=== PATIENT | female | born 1995 | race American Indian/Alaskan Native ===

== ENCOUNTER 2017-12-20 12:18 | Emergency (ER) | payer SELFPAY ==
[2017-12-20 12:32] VITALS: BP 150/98
== END 2017-12-20 13:05 | disposition left against medical advice (07) ==
LOC: ED 12:18
DX: Z32.00 Encounter for pregnancy test, result unknown (principal); Z53.21 Procedure and treatment not carried out due to patient leaving prior to being seen by health care provider

== ENCOUNTER 2018-07-13 17:26 | Outpatient (CLI) | payer MEDICAID ==
[2018-07-13] MEDS ORDERED: LACTATED RINGERS 500 ML IV ONE (17:37)
[2018-07-13 18:49] LABS: Bacteria,Urine 1+ /HPF (Negative); Bilirubin,Urine NEG (Negative); Blood,Urine SM (Negative); Color,Urine Yellow (Yellow); Mucus,Urine FEW /HPF; Urobilinogen,Urine < 2.0 mg/dL (<2.0)
[2018-07-13 20:17] LABS: Hematocrit 33.8 % (30.3-42.9); Hemoglobin 11.3 gm/dl (10.1-14.3); Mean Corpuscular HGB Conc 33 % (30-34); Mean Corpuscular Volume 94 fl (79-97); Platelet Count 233 K/mm3 (140-440); Red Cell Distribution Width 13.4 % (13.2-15.2)
[2018-07-13 20:40] VITALS: BP 141/100
[2018-07-13 20:44] LABS: Alanine Aminotransferase 12 units/L (7-56); Uric Acid 4.3 mg/dL (3.5-7.6)
--- NOTE | 2018-07-13 22:03 | Ultrasound Report ---
FINAL REPORT EXAM: US OB BPP WO NON-STRESS HISTORY: BPP, CORA, EFW TECHNIQUE: Biophysical profile obstetrical ultrasound PRIORS: None. FINDINGS: LMP 11/07/2017 clinical Age: 35 w 3 d LMP EDC 08/14/2018 Biophysical profile scoring 2 movement 2 tone 2 breathing 2 fluid 8/8 overall score Cardiac motion: 149 BPM using M-mode doppler Amniotic Fluid Volume: Adequate Cervical Length: 4.0 cm IMPRESSION: Single intrauterine viable with an approximate age of 35 weeks 3 days. Biophysical profile score is 8/8
--- NOTE | 2018-07-13 22:07 | Ultrasound Report ---
FINAL REPORT EXAM: US OB FOLLOW UP HISTORY: BPP, CORA, EFW TECHNIQUE: Limited obstetrical ultrasound PRIORS: None. FINDINGS: LMP: LMP 11/07/2017 clinical Age: 35 w 3 d US Age (average) = 32 w 1 d EFW (BPD,HC,AC,FL) = 1875 g +/-278 g (4 lbs 2 Oz. +/-10 oz.) LMP EDC 08/14/2018 US EDC 09/06/2018 CI 79.8 (range 74 to 83) HC/AC 1.07 (range 0.93 to 1.11) FL/BPD 77.1 (range 72.1 to 88.1) FL/HC 20.7 (range 17.9 to 24.5) FL/AC 22.3 (range 20 to 24.0) BPD 8.0 cm corresponding to age 32 weeks 1 day HC 30.0 cm corresponding to age 32 weeks 6 days AC 27.7 cm corresponding to age 31 weeks 5 days FL 6.2 cm corresponding to age 32 weeks 0 days Presentation: Cephalic Activity: Monitored Placental location: Fundus Placental grade: 1 Cardiac motion: 144 BPM using M-mode doppler Amniotic Fluid Volume: Adequate CORA 11.0 cm (normal) Cervical Length: 4.0 cm IMPRESSION: Single intrauterine viable with an approximate age of 32 weeks 1 days by ultrasound measur ements. CORA normal. Placenta is normal without evidence for placenta previa or abruption.
== END 2018-07-13 21:30 | disposition home or self-care (01) ==
LOC: TRG 17:26
PROVIDERS: ATTEND Obstetrics & Gynecology
DX: O47.03 False labor before 37 completed weeks of gestation, third trimester (principal); Z3A.35 35 weeks gestation of pregnancy
CPT/HCPCS: 36415; 59025; 76816; 76819; 81001; 82565; 83615; 84450; 84460; 84550; 85027

== ENCOUNTER 2018-07-14 19:57 | Inpatient (IN) | payer MEDICAID ==
[2018-07-14] MEDS ORDERED: STADOL IV PRN (21:45)
[2018-07-14] MEDS ORDERED: CERVIDIL VG ONE (21:45)
[2018-07-14 22:36] LABS: Mean Corpuscular HGB Conc 33 % (30-34); Mean Corpuscular Volume 93 fl (79-97); Platelet Count 227 K/mm3 (140-440); Red Blood Count 3.55 M/mm3 (3.65-5.03); Red Cell Distribution Width 12.9 % (13.2-15.2)
[2018-07-14] MEDS ORDERED: NORMODYNE PO SCH (23:00)
[2018-07-14] MEDS: NORMODYNE PO SCH (23:02)
[2018-07-15] MEDS: NORMODYNE PO SCH ×3 (08:11→21:54)
[2018-07-15] MEDS ORDERED: AMPICILLIN/NS 2 GM/100 ML 2 GM/100 ML BAG IV ONE ×2 (09:00→15:30)
--- NOTE | 2018-07-15 11:35 | History and Physical Report ---
History of Present Illness Date of examination: 07/15/18 Date of admission: 07/14/18 19:57 Chief complaint: IOL History of present illness: 22y/o @ 35+5 weeks admitted for induction of labor secondary to chronic hypertension and IUGR. Per request from [facility], the patient is undergoing induction of labor. Her course has also been complicated by obesity. Past History Past Medical History: hypertension Past Surgical History: no surgical history Social history: single - Obstetrical History Expected Date of Delivery: 08/14/18 Actual Gestation: 35 Week(s) 5 Day(s) : 1 Para: 0 Hx # Term Pregnancies: 0 Number of Pregnancies: 0 Spontaneous Abortions: 0 Induced : 0 Number of Living Children: 0 Medications and Allergies Allergies Allergy/AdvReac Type Severity Reaction Status Date / Time No Known Allergies Allergy Unverified 02/01/14 11:50 Home Medications Medication Instructions Recorded Confirmed Last Taken Type Vit No.130/Iron/Folic 1 each PO DAILY 05/04/18 07/13/18 07/13/18 08:00 History [ Tablet] Aspirin [Adult Aspirin] 81 mg PO DAILY 05/16/18 07/13/18 07/13/18 08:00 History Labetalol [Normodyne TAB] 400 mg PO TID #180 tablet 06/06/18 07/13/18 07/13/18 14:00 Rx NIFEdipine XL [Procardia Xl] 90 mg PO QDAY #30 tablet 06/06/18 07/13/18 07/13/18 10:00 Rx Active Meds: Active Medications Butorphanol Tartrate (Stadol) 2 mg IV Q2H PRN PRN Reason: Labor Pain Ampicillin Sodium 1 gm/ Sodium (Chloride) 50 mls @ 200 mls/hr IV Q4HR SANG Lactated Ringer's (Lactated Ringers) 1,000 mls @ 125 mls/hr IV DIRECT SANG Labetalol HCl (Normodyne) 400 mg PO TID [facility] Last Admin: 07/15/18 08:11 Dose: 400 mg Documented by: Nifedipine (Procardia*For Tocolysis Only*) 10 mg PO DAILY SANG Review of Systems All systems: negative Genitourinary: no vaginal bleeding, no leakage of fluid, no contractions - Vital Signs Vital signs: Vital Signs Pulse BP 96 H 144/94 07/14/18 20:26 07/14/18 20:26 Temp Pulse Resp BP Pulse Ox 98.4 F 76 16 142/89 98 07/15/18 08:10 07/15/18 08:10 07/15/18 08:10 07/15/18 08:10 07/15/18 07:00 - Physical Exam Breasts: Positive: deferred Cardiovascular: Regular rate Lungs: Positive: Clear to auscultation Results Result Diagrams: 07/14/18 21:55 Abnormal lab results 07/14/18 Range/Units 21:55 RBC 3.55 L (3.65-5.03) M/mm3 RDW 12.9 L (13.2-15.2) % All other labs normal. Assessment and Plan - Patient Problems (1) Chronic hypertension complicating or reason for care during Current Visit: No Status: Acute Qualifiers: Trimester: third trimester Qualified Code(s): O10.913 - Unspecified pre- existing hypertension complicating , third trimester Plan to address problem: admit for induction of labor (2) IUGR (intrauterine growth restriction) Current Visit: No Status: Acute (3) Obesity Current Visit: No Status: Acute Qualifiers: Obesity classification: unspecified obesity classification
[2018-07-15] MEDS: PROCARDIA*For Tocolysis only PO SCH (11:37)
[2018-07-15] MEDS ORDERED: AMPICILLIN 1 GM in NACL 0.9% 50 ML IV SCH (13:00)
[2018-07-15] MEDS: CYTOTEC VG PRN ×2 (15:33→19:44)
[2018-07-15] MEDS ORDERED: AMPICILLIN/NS 1 GM/50 ML 1 GM/50 ML BAG IV SCH (20:00)
[2018-07-15] MEDS: LACTATED RINGERS 1,000 ML IV SCH (20:11)
[2018-07-15] MEDS ORDERED: CYTOTEC PO ONE (23:45)
[2018-07-15] MEDS: AMBIEN PO PRN (23:58)
[2018-07-16] MEDS: APRESOLINE IV PRN ×2 (03:23→13:30)
[2018-07-16] MEDS ORDERED: CYTOTEC VG ONE (04:55)
[2018-07-16] MEDS ORDERED: TYLENOL PO PRN (07:49)
[2018-07-16] MEDS ORDERED: APRESOLINE IV ONE (07:49)
[2018-07-16] MEDS ORDERED: PITOCin/NS 20 UNIT/1000ML DRIP 20 UNITS/1,000 ML BAG IV SCH ×3 (08:00→15:00)
[2018-07-16] MEDS ORDERED: PITOCin/NS 30 UNIT/500ML 30 UNITS/500 ML BAG IV SCH ×2 (08:00→14:00)
[2018-07-16] MEDS: NORMODYNE PO SCH ×3 (08:26→19:55)
[2018-07-16] MEDS: LACTATED RINGERS 1,000 ML IV SCH (08:33)
[2018-07-16] MEDS: PROCARDIA*For Tocolysis only PO SCH (10:30)
--- NOTE | 2018-07-16 12:48 | Progress Note ---
Assessment and Plan - Patient Problems (1) Chronic hypertension complicating or reason for care during Current Visit: No Status: Acute Qualifiers: Trimester: third trimester Qualified Code(s): O10.913 - Unspecified pre- existing hypertension complicating , third trimester (2) IUGR (intrauterine growth restriction) Current Visit: No Status: Acute Plan to address problem: will proceed with a primary delivery (3) Obesity Current Visit: No Status: Acute Qualifiers: Obesity classification: unspecified obesity classification Subjective - Subjective Date of service: 07/16/18 Principal diagnosis: IUGR Interval history: 22y/o @ 35+6 weeks admitted for induction of labor secondary to chronic hypertension and IUGR. The patient has received cervidil and multiple doses of cytotec and her cervix still remains closed. Pitocin was initiated however it appeared the tracing demonstrating occasional subtle late decels. The patient was counseled for a primary delivery. Patient reports: no new complaints Objective - Vital Signs Vital Signs: Vital Signs - 12hr 07/16/18 07/16/18 07/16/18 02:00 02:56 03:23 Temperature 98.0 F Pulse Rate 82 82 Respiratory Rate Blood Pressure 175/110 175/110 O2 Sat by Pulse Oximetry 07/16/18 07/16/18 07/16/18 03:27 03:44 03:58 Temperature Pulse Rate 68 78 71 Respiratory Rate Blood Pressure 183/113 164/106 159/92 O2 Sat by Pulse Oximetry 07/16/18 07/16/18 07/16/18 04:13 04:43 04:59 Temperature Pulse Rate 68 77 93 H Respiratory Rate Blood Pressure 170/82 156/79 155/96 O2 Sat by Pulse Oximetry 07/16/18 07/16/18 07/16/18 05:29 05:33 06:05 Temperature Pulse Rate 91 H 83 90 Respiratory Rate Blood Pressure 164/87 144/92 153/91 O2 Sat by Pulse Oximetry 07/16/18 07/16/18 07/16/18 06:35 07:05 07:25 Temperature 97.5 F L Pulse Rate 74 73 86 Respiratory 20 Rate Blood Pressure 144/83 164/93 168/109 O2 Sat by Pulse Oximetry 07/16/18 07/16/18 07/16/18 07:36 08:06 08:23 Temperature Pulse Rate 82 82 84 Respiratory Rate Blood Pressure 180/120 162/103 O2 Sat by Pulse 97 Oximetry 07/16/18 07/16/18 07/16/18 08:25 08:26 08:28 Temperature Pulse Rate 99 H 99 H 81 Respiratory Rate Blood Pressure 162/103 162/103 O2 Sat by Pulse 98 Oximetry 07/16/18 07/16/18 07/16/18 08:35 08:36 08:40 Temperature Pulse Rate 102 H 100 H 104 H Respiratory Rate Blood Pressure 164/113 O2 Sat by Pulse 97 97 Oximetry 07/16/18 07/16/18 07/16/18 08:45 08:50 08:55 Temperature Pulse Rate 101 H 105 H 112 H Respiratory Rate Blood Pressure O2 Sat by Pulse 98 98 97 Oximetry 07/16/18 07/16/18 07/16/18 09:00 09:05 09:10 Temperature Pulse Rate 96 H 109 H 102 H Respiratory Rate Blood Pressure 146/85 O2 Sat by Pulse 97 98 98 Oximetry 07/16/18 07/16/18 07/16/18 09:35 10:05 10:28 Temperature Pulse Rate 94 H 101 H 90 Respiratory Rate Blood Pressure 136/82 143/85 O2 Sat by Pulse 98 Oximetry 07/16/18 07/16/18 07/16/18 10:33 10:35 10:38 Temperature Pulse Rate 100 H 91 H 85 Respiratory Rate Blood Pressure 125/77 O2 Sat by Pulse 98 98 Oximetry 07/16/18 07/16/18 07/16/18 10:43 10:48 10:53 Temperature Pulse Rate 92 H 89 86 Respiratory Rate Blood Pressure O2 Sat by Pulse 98 97 97 Oximetry 07/16/18 07/16/18 07/16/18 10:58 11:03 11:05 Temperature Pulse Rate 112 H 111 H 107 H Respiratory Rate Blood Pressure 110/58 O2 Sat by Pulse 98 99 Oximetry 07/16/18 07/16/18 07/16/18 11:08 11:13 11:18 Temperature Pulse Rate 107 H 108 H 106 H Respiratory Rate Blood Pressure O2 Sat by Pulse 96 96 96 Oximetry 07/16/18 07/16/18 07/16/18 11:23 11:28 11:33 Temperature Pulse Rate 103 H 104 H 99 H Respiratory Rate Blood Pressure O2 Sat by Pulse 96 98 97 Oximetry 07/16/18 07/16/18 07/16/18 11:35 11:38 11:41 Temperature Pulse Rate 100 H 100 H 104 H Respiratory Rate Blood Pressure 108/69 O2 Sat by Pulse 94 97 86 Oximetry 07/16/18 07/16/18 07/16/18 11:50 12:06 12:33 Temperature 97.8 F Pulse Rate 91 H 80 Respiratory 18 Rate Blood Pressure 119/73 O2 Sat by Pulse 98 Oximetry 07/16/18 12:35 Temperature Pulse Rate 83 Respiratory Rate Blood Pressure 129/84 O2 Sat by Pulse Oximetry - Labs Labs: Abnormal Labs 07/14/18 21:55 RBC 3.55 L RDW 12.9 L
[2018-07-16] MEDS ORDERED: REGLAN IV ONE (13:00)
[2018-07-16] MEDS ORDERED: LACTATED RINGERS 1,000 ML IV SCH (13:00)
[2018-07-16] MEDS ORDERED: BICITRA PO ONE (13:00)
[2018-07-16] MEDS ORDERED: ANCEF/STERILE WATER 2 GM/20 ML 2 GM/20 ML SYRINGE IV NR (13:00)
[2018-07-16] MEDS ORDERED: PEPCID IV ONE (13:00)
[2018-07-16] MEDS ORDERED: CYTOTEC ONE (13:16)
[2018-07-16] MEDS ORDERED: METHERGINE IM ONE (13:17)
[2018-07-16] MEDS ORDERED: PHENERGAN PO PRN (13:27)
[2018-07-16] MEDS ORDERED: ZOFRAN IV PRN (13:27)
[2018-07-16] MEDS ORDERED: PHENERGAN PR PRN (13:27)
[2018-07-16] MEDS ORDERED: NARCAN 0.4 MG/1 ML IV PRN ×2 (13:27→14:14)
[2018-07-16] MEDS ORDERED: DILAUDID IV PRN (13:27)
[2018-07-16] MEDS ORDERED: NEO SYNEPHRINE/NS Syringe(OR USE) IV ONE (13:55)
[2018-07-16] MEDS ORDERED: ZOFRAN ONE (13:55)
[2018-07-16] MEDS ORDERED: ASTRAMORPH PF 10MG/10ML ONE (13:55)
[2018-07-16] MEDS ORDERED: SODIUM CHLORIDE FLUSH SYRINGE 10 ML IV NR ×2 (14:00→15:00)
--- NOTE | 2018-07-16 14:02 | Procedure Note ---
OB Delivery Note - Delivery Date of Delivery: 07/16/18 Surgeon: HARI JOHNSON Estimated blood loss: other (650ml) - Section Preop diagnosis: other Postop diagnosis: same section procedure: section, primary low transverse Disposition: PACU Complications: none - A at 1 minute: 8 at 5 minutes: 9 Infant Gender: Female (weight 3 lbs. 13 oz.)
--- NOTE | 2018-07-16 14:05 | Operative Report ---
Operative Report Operative Report: Date of surgery: 07/16/2018 Preoperative diagnosis: at 35+6 weeks; chronic hypertension affecting ; intrauterine growth restriction; failed induction Postoperative diagnosis: Same as above Procedure: Primary low-transverse delivery Surgeon: Bee Nicole M.D. Anesthesia: Regional Estimated blood loss: 650 mL IV fluids: 1400 mL Urine output: 250 mL Findings: Liveborn female with Apgars of 8 and 9 weight 3 lbs. 13 oz. Indications: 22-year-old at 35+6 weeks who was admitted for induction of labor secondary history of chronic hypertension and intrauterine growth restriction with a weight at 1 percentile. Per the advice of maternal- medicine, it was advised that the patient be scheduled for delivery. The patient's intrapartum course was complicated by a failed induction. Procedure: The patient was taken to the operating room and given regional anesthesia without complication. She was prepped and draped in a normal sterile fashion. A Pfannenstiel skin incision was made down to layer the fascia which was nicked in the midline extended laterally with the Bovie cautery. The superior aspect of the rectus fascia was grasped with Ledyard clamps x2 and the rectus muscles off sharply. This was done in inferior fashion as well. The rectus muscle midline and peritoneum entered bluntly. An Marito retractor was then inserted. A bladder blade was placed. The vesicouterine peritoneum was then entered sharply with Metzenbaum scissors. A bladder flap was created digitally. A low transverse uterine incision was then made and extended digitally. There was clear fluid upon entry into the uterine cavity. The head was delivered through the incision with fundal pressure. The cord was clamped and cut x2 and was passed off to pediatrics. The placenta was then manually extracted. The uterus was then exteriorized and cleared of clots and debris. The uterine incision was then closed in a running locked fashion with 0 Vicryl additional imbricating stitch was applied for 2 layer closure. The posterior cul-de-sac was then copiously irrigated. The uterus was replaced back into the abdomen and pelvis were the gutters were then irrigated. The Marito retractor was then removed. The peritoneum was then reapproximated with 3-0 Vicryl incorporating the rectus muscle. The fascia was then closed with 0 Vicryl in a running fashion. The skin was then reapproximated with 3-0 Monocryl on a Roosevelt needle subcuticular fashion. Steri-Strips to place across the incision and a Crede procedures performed at the end of the surgery. A pressure dressing was applied to the incision. The surgery productive of a liveborn female infant with Apgars of and 9 weight 3 lbs. 13 oz. The patient was taken to the recovery room in stable condition. All sponge laps and needle counts correct x2.
[2018-07-16] MEDS ORDERED: MAGNESIUM SULFATE IV ONE (14:13)
[2018-07-16] MEDS ORDERED: LANSINOH TP PRN (14:14)
[2018-07-16] MEDS ORDERED: TORADOL IV PRN (14:14)
[2018-07-16] MEDS ORDERED: TUCKS PAD TP PRN (14:14)
[2018-07-16] MEDS ORDERED: LACTATED RINGERS 1,000 ML ONE (14:27)
[2018-07-16] MEDS ORDERED: NORMODYNE IV ONE (14:40)
[2018-07-16] MEDS ORDERED: D5LR 1,000 ML IV SCH (15:00)
[2018-07-16] MEDS ORDERED: TORADOL ONE (15:08)
--- NOTE | 2018-07-16 15:20 | Anesthesia Consultation ---
Anesthesia Consult and Med Hx - Airway Anesthetic Teeth Evaluation: Good, Partials ROM Head & Neck: Adequate Mental/Hyoid Distance: Adequate Mallampati Class: Class I Intubation Access Assessment: Good - Cardiac Exam Cardiac Exam: RRR - Pre-Operative Health Status ASA Pre-Surgery Classification: ASA3 Proposed Anesthetic Plan: Spinal - Pulmonary Hx Smoking: No Hx Asthma: No Hx Respiratory Symptoms: No COPD: No Hx Pneumonia: No - Cardiovascular System Hx Hypertension: Yes (hx CHTN) - Central Nervous System Hx Seizures: No Hx Psychiatric Problems: No - Endocrine Hx Renal Disease: No Hx End Stage Renal Disease: No Hx Hypothyroidism: No Hx Hyperthyroidism: No - Hematic Hx Anemia: No Hx Sickle Cell Disease: No - Other Systems Hx Alcohol Use: No (occas social; none during )
--- NOTE | 2018-07-16 15:21 | Post Anesthesia Evaluation ---
- Post Anesthesia Evaluation Patient Participated: Yes Airway Patent: Yes Stable Respiratory Function: Yes Temp > 96.8F: Yes Pain Manageable: Yes Adequeate Hydration: Yes Anesthesia Complications: No Block Receding Appropriately: Yes Patient on Ventilator: No
--- NOTE | 2018-07-16 15:21 | Anesthesia Day of Surgery ---
Anesthesia Day of Surgery - Day of Surgery Patient Examined: Yes Patient H&P Reviewed: Yes Patient is NPO: Yes Beta Blockers: Yes Cardiac Clearance: No Pulmonary Clearance: No Louis's Test: N/A
[2018-07-16] MEDS: MAGNESIUM SULFATE 40GM/1000ML 40 GM/1,000 ML BAG IV SCH (16:28)
[2018-07-16] MEDS ORDERED: MAGNESIUM SULFATE 4GM/100ML 4 GM/100 ML BAG IV SCH (16:34)
[2018-07-16] MEDS: AMBIEN PO PRN (22:40)
[2018-07-17 04:03] LABS: Hematocrit 29.2 % (30.3-42.9); Hemoglobin 9.6 gm/dl (10.1-14.3)
[2018-07-17] MEDS: NORMODYNE PO SCH ×3 (08:45→20:25)
[2018-07-17] MEDS: APRESOLINE IV PRN (08:51)
[2018-07-17] MEDS: PROCARDIA XL PO SCH (10:34)
[2018-07-17] MEDS ORDERED: LACTATED RINGERS 1,000 ML ONE (10:42)
[2018-07-17] MEDS: MAGNESIUM SULFATE 40GM/1000ML 40 GM/1,000 ML BAG IV SCH (11:47)
--- NOTE | 2018-07-17 13:37 | Progress Note ---
Assessment and Plan - Patient Problems (1) Chronic hypertension complicating or reason for care during Current Visit: No Status: Acute Qualifiers: Trimester: third trimester Qualified Code(s): O10.913 - Unspecified pre- existing hypertension complicating , third trimester Plan to address problem: patient doing well routine postop care (2) IUGR (intrauterine growth restriction) Current Visit: No Status: Acute (3) Obesity Current Visit: No Status: Acute Qualifiers: Obesity classification: unspecified obesity classification Subjective - Subjective Date of service: 07/17/18 Principal diagnosis: IUGR Interval history: 22y/o s/p primary c/s for failed induction. Receiving magnesium postoperatively. Patient is scheduled to complete magnesium @ 1400. States her pain is well controlled. Patient reports: appetite normal, pain well controlled [place]: doing well Objective - Vital Signs Latest vital signs: Vital Signs Temp Pulse Resp BP Pulse Ox 07/17/18 13:14 81 119/69 07/17/18 13:11 98.4 F 18 07/17/18 13:01 88 115/66 07/17/18 12:14 87 124/65 07/17/18 11:44 88 121/71 07/17/18 11:14 86 132/66 07/17/18 10:44 80 126/80 07/17/18 10:34 85 123/77 07/17/18 09:15 88 146/81 07/17/18 08:57 98.3 F 07/17/18 08:46 87 164/104 07/17/18 08:45 93 H 164/104 07/17/18 08:44 93 H 159/105 07/17/18 08:14 86 151/94 07/17/18 07:44 78 144/98 07/17/18 07:14 83 157/98 07/17/18 06:44 82 148/92 07/17/18 06:14 81 137/87 07/17/18 05:57 97.9 F 07/17/18 05:44 71 140/83 07/17/18 05:14 83 141/90 07/17/18 04:44 75 131/85 07/17/18 04:14 75 129/75 07/17/18 03:44 75 138/82 07/17/18 03:30 88 98 07/17/18 03:14 76 138/91 07/17/18 02:44 71 137/87 07/17/18 02:14 76 135/87 07/17/18 01:44 76 141/90 07/17/18 01:14 73 129/83 07/17/18 00:44 74 148/89 07/17/18 00:14 78 136/85 07/16/18 23:44 71 134/89 07/16/18 23:14 74 141/83 07/16/18 22:44 75 144/84 07/16/18 22:14 73 139/85 07/16/18 21:44 85 133/81 07/16/18 21:14 78 135/82 07/16/18 20:44 72 143/90 07/16/18 20:15 83 170/84 07/16/18 19:55 91 H 149/97 07/16/18 19:52 91 H 149/97 07/16/18 19:51 98 F 18 07/16/18 19:44 82 138/85 07/16/18 19:14 78 157/91 07/16/18 18:44 82 135/81 07/16/18 18:20 75 95 07/16/18 18:17 81 91 07/16/18 18:15 80 95 07/16/18 18:13 72 139/89 07/16/18 16:21 144/69 07/16/18 16:16 98.4 F 79 11 L 136/69 07/16/18 16:00 79 16 135/80 99 07/16/18 15:46 81 14 136/96 99 07/16/18 15:30 73 16 129/87 99 07/16/18 15:25 75 12 134/84 99 07/16/18 15:20 136/88 07/16/18 15:18 97.7 F 136/95 07/16/18 13:54 90 148/92 07/16/18 13:39 85 158/97 Intake and Output 07/16/18 07/17/18 07/17/18 22:59 06:59 14:59 Intake Total 400 965.833 Output Total 1400 1200 800 Balance -1000 -1200 165.833 Intake: IV 400 965.833 MAGNESIUM SULFATE 40GM/ 965.833 1000ML 40 gm In 1,000 ml @ 2 GM/HR 50 mls/hr IV DIRECT SANG Rx#:[id number] Output: Urine 1400 1200 800 Indwelling Catheter 700 1200 800 Uretheral (Rob) 700 Other: Total, Output Amount 700 1200 800 - Exam Abdomen: Present: normal appearance Incision: Present: dressed - Labs Labs: Abnormal lab results 07/17/18 Range/Units 02:15 Hgb 9.6 L (10.1-14.3) gm/dl Hct 29.2 L (30.3-42.9) %
[2018-07-17] MEDS: IBUPROFEN PO PRN (18:31)
[2018-07-18] MEDS: AMBIEN PO PRN (01:40)
[2018-07-18] MEDS: PERCOCET 5/325 PO PRN ×2 (04:18→19:58)
[2018-07-18] MEDS: NORMODYNE PO SCH ×4 (09:54→19:58)
[2018-07-18] MEDS: PROCARDIA XL PO SCH (09:54)
[2018-07-18] MEDS: IBUPROFEN PO PRN ×3 (11:28→23:56)
--- NOTE | 2018-07-18 14:08 | Progress Note ---
Assessment and Plan - Patient Problems (1) Chronic hypertension complicating or reason for care during Current Visit: No Status: Acute Qualifiers: Trimester: third trimester Qualified Code(s): O10.913 - Unspecified pre- existing hypertension complicating , third trimester Plan to address problem: patient doing well discharge home tomorrow (2) IUGR (intrauterine growth restriction) Current Visit: No Status: Acute (3) Obesity Current Visit: No Status: Acute Qualifiers: Obesity classification: unspecified obesity classification Subjective - Subjective Date of service: 07/18/18 Principal diagnosis: IUGR Interval history: 22y/o states she is doing well. Tolerating regular diet. Pain well controlled. Patient reports: appetite normal, voiding normally [place]: in NICU Objective - Vital Signs Latest vital signs: Vital Signs Temp Pulse Resp BP BP BP Pulse Ox 07/18/18 09:54 92 H 126/75 07/18/18 08:08 98.5 F 74 18 126/75 07/18/18 05:35 98.5 F 87 18 113/70 95 07/18/18 00:29 98.4 F 86 18 106/72 98 07/17/18 20:31 98.2 F 92 H 18 109/66 96 07/17/18 20:25 111/66 07/17/18 18:05 97.9 F 86 18 108/64 97 07/17/18 17:12 99.2 F 71 18 99/54 98 07/17/18 16:44 85 99/54 07/17/18 16:14 86 104/65 07/17/18 15:44 85 101/55 07/17/18 15:14 94 H 111/58 07/17/18 15:10 78 22 111/58 98 07/17/18 14:44 97 H 109/69 07/17/18 14:14 93 H 129/74 07/17/18 14:10 74 22 129/74 98 Intake and Output 07/17/18 07/18/18 07/18/18 22:59 06:59 14:59 Intake Total 360 120 600 Output Total 2500 Balance -2140 120 600 Intake: Oral 360 600 Intake, Free Water 120 Output: Urine 2500 Indwelling Catheter 2000 Void 500 Other: Total, Intake Amount 240 120 Total, Output Amount 500 # Voids Indwelling Catheter 350 Void 1 - Exam Breasts: Present: deferred Cardiovascular: Present: Regular rate Lungs: Present: Clear to auscultation
--- NOTE | 2018-07-18 14:11 | Discharge Summary ---
Providers - Providers Date of Admission: 07/14/18 19:57 Date of discharge: 07/19/18 Attending physician: KENIA BYERS MD Primary care physician: KENIA BYERS MD Hospitalization Reason for admission: induction of labor Delivery: Procedure: section, primary low transverse Incision: normal Discharge diagnosis: other Hospital course: Patient admitted for iol for IUGR and chronic hypertension. Intrapartum complicated by failed induction. Postop uncomplicated Condition at discharge: Good Disposition: [id number] TO HOME OR SELFCARE - Discharge Diagnoses (1) Chronic hypertension complicating or reason for care during Status: Acute Qualifiers: Trimester: third trimester Qualified Code(s): O10.913 - Unspecified pre- existing hypertension complicating , third trimester (2) IUGR (intrauterine growth restriction) Status: Acute (3) Obesity Status: Acute Qualifiers: Obesity classification: unspecified obesity classification Plan - Discharge Medications Prescriptions: Ibuprofen [Motrin] 800 mg PO Q8HR PRN #60 tablet PRN Reason: Pain, Mild (1-3) oxyCODONE /ACETAMINOPHEN [Percocet 5/325] 1 tab PO Q6HR PRN #30 tablet PRN Reason: Pain - Provider Discharge Summary Activity: no sex for 6 weeks, no heavy lifting 4 weeks, no strenuous exercise Diet: routine Instructions: routine Additional instructions: [] Smoking cessation referral if applicable(refer to patient education folder for contact #) [] Refer to [facility] Booklet Call your doctor immediately for: * Fever > 100.5 * Heavy vaginal bleeding ( >1 pad per hour) * Severe persistent headache * Shortness of breath * Reddened, hot, painful area to leg or breast * Drainage or odor from incision. * Keep incision clean and dry at all times and follow doctor's instructions rega rding bathing/showering schedule followup in 2 weeks - Follow up plan
[2018-07-19] MEDS: NORMODYNE PO SCH (11:42)
[2018-07-19] MEDS: IBUPROFEN PO PRN (11:42)
[2018-07-19] MEDS: PROCARDIA XL PO SCH (11:42)
[2018-07-19 12:43] VITALS: BP 127/80
== END 2018-07-19 12:00 | disposition home or self-care (01) | DRG 765 ==
LOC: LD 19:57 → OB 07-17 18:22
PROVIDERS: ADMIT Obstetrics & Gynecology; ATTEND Obstetrics & Gynecology
PROC: 10D00Z1 Extraction of Products of Conception, Low, Open Approach (ICD-10-PCS; principal; 2018-07-16)
DX: O10.92 Unspecified pre-existing hypertension complicating childbirth (principal); O36.5930 Maternal care for other known or suspected poor fetal growth, third trimester, not applicable or unspecified; O61.0 Failed medical induction of labor; O99.214 Obesity complicating childbirth; E66.9 Obesity, unspecified; Z3A.35 35 weeks gestation of pregnancy; Z37.0 Single live birth
CPT/HCPCS: 36415; 59025; 76816; 76819; 81001; 82565; 83615; 84450; 84460; 84550; 85014; 85018; 85027; 86592; 86850; 86900; 86901; G0378; J0290; J0360; J0690; J1885; J2210; J2274; J2370; J2405; J2590; J2765; J3475; J7120